=== PATIENT | female | born 1940 | race Caucasian/White ===

== ENCOUNTER 2020-12-16 07:37 | Day surgery (SDC) | payer MEDICARE, OTHER ==
[~2020-12-16 07:37] MED LIST: BACLOFEN 10MG T10 MG PO; CIPRO500 MG PO; DICLOFENAC SODI75 MG PO; FAMOTIDINE40 MG PO; FIBER0.52 GM PO; ROSUVASTATIN CA10 MG PO; URO-MP CAPSULE1 EACH PO; VITAMIN D310 MC1 PO
[2020-12-16 08:10] LABS: BILIRUBIN NEGATIVE (NEGATIVE); BLOOD 2+ Ery/uL (NEGATIVE); CLARITY CLEAR (CLEAR); GLUCOSE (U) NORMAL (NORMAL); LEUKOCYTES 1+ Leu/uL (NEGATIVE); NITRITE NEGATIVE (NEGATIVE); PROTEIN 1+ mg/dL (NEGATIVE); SPECIFIC GRAVITY 1.025 (1.001-1.030); UROBILINOGEN 0.2 mg/dL (0.2-1.0)
[2020-12-16 08:17] LABS: COLOR GREEN (YELLOW)
[2020-12-16 08:20] LABS: BACTERIA TRACE
--- NOTE | 2020-12-16 15:43 | NUR ---
MET WITH PT. AND DAUGHTER. PT. HAS A 3/. SHE WILL NEED A ROLLING WALKER. REFERRAL SENT TO [facility] FOR RW. SHE REQUESTS [facility] FOR HH.
[2020-12-17 06:25] LABS: BASOPHIL 0.1 % (0-2); EOSINOPHIL 0 % (0-7); HCT 28.8 % (37.0-47.0); HGB 9.7 g/dl (12.5-16.0); LYMPHOCYTE 6.3 % (15-48); MCH 31.6 pg (25.0-31.0); MCHC 33.7 g/dL (32.0-36.0); MCV 93.8 fL (78.0-100.0); MONOCYTE 6.1 % (0-12); MPV 10.2 fL (6.0-9.5); NEUTROPHIL 86.9 % (41-80); NRBC 0; PLT 246 K/uL (150-400); RBC 3.07 M/uL (4.20-5.40); RDW 13.7 % (11.5-14.0); WBC 15.5 K/uL (4.0-10.5)
[2020-12-17 06:52] LABS: BUN/CREAT RATIO (CALC) 21.2 RATIO; CREATININE 0.85 mg/dL (0.51-0.95); POTASSIUM 4.7 mmol/L (3.5-5.1)
[2020-12-17] MEDS ORDERED: XARELTO10 MG PO (09:19)
[2020-12-17] MEDS ORDERED: ULTRA-LIGHT RO1 EACH XX (09:19)
[2020-12-17] MEDS ORDERED: FEOSOL325 MG PO (09:19)
--- NOTE | 2020-12-17 10:08 | NUR ---
[facility] FAX NUMBER IS [phone]. PLEASE FAX D/C INFORMATION AND ORDER TO [facility] UPON DISCHARGE.
--- NOTE | 2020-12-17 12:42 | NUR ---
PT. TO D/C HOME. PT. HAS A 11/18. [facility] TO DELIVER A ROLLING WALKER UPON DISCHARGE. PT. REQUESTED [facility] HH FOR PT/OT AND NURSING ASSESSMENT. PT. COPAY FOR JOSE IS $33.00. PT. IS IN AGREEMENT WITH COST.
--- NOTE | 2020-12-17 13:36 | NUR ---
[id number] PATIENT AND FAMILY MEMBER GIVEN D/C INSTRUCTIONS, IV REMOVED. PATIENT AND FAMILY VERBALIZED UNDERSTANDING
== END 2020-12-17 13:05 | disposition home health service (06) ==
LOC: FAS 07:37 → FMS 12:04
PROVIDERS: Legal Medicine; Nurse Practitioner Adult Health
DX: M17.11 Unilateral primary osteoarthritis, right knee (principal); M25.761 Osteophyte, right knee; E78.5 Hyperlipidemia, unspecified; R41.0 Disorientation, unspecified; N30.10 Interstitial cystitis (chronic) without hematuria; K21.9 Gastro-esophageal reflux disease without esophagitis; E78.00 Pure hypercholesterolemia, unspecified; Z88.0 Allergy status to penicillin; Z88.1 Allergy status to other antibiotic agents; Z88.2 Allergy status to sulfonamides; Z88.6 Allergy status to analgesic agent; Z88.8 Allergy status to other drugs, medicaments and biological substances; R11.0 Nausea
CPT/HCPCS: 36415; 73560; 80048; 81001; 85025; 86850; 86900; 86901; 94010; 97116; 97162; 97166; 97530-GP; 97535; C1713; C1776; J0171; J1100; J1170; J1885; J2250; J2270; J2405; J2704; J2795; J3010; J3370; J3475; J7040; J7120